=== PATIENT | female | born 1955 | race Caucasian/White ===

== ENCOUNTER 2023-07-30 16:47 | Emergency (ER) | payer SELFPAY ==
[~2023-07-30] VITALS: Ht 157.5 cm; Wt 59.0 kg
[2023-07-30 17:23] LABS: APPEARANCE,URINE CLEAR (CLEAR); BILIRUBIN,URINE NEGATIVE (NEGATIVE); COLOR,URINE LIGHT-YELLOW (YELLOW); GLUCOSE, URINE (UA) NEGATIVE (NEGATIVE); KETONES,URINE NEGATIVE (NEGATIVE); LEUKOCYTE ESTERASE ,URINE NEGATIVE Leu/uL (NEGATIVE); NITRATE,URINE NEGATIVE (NEGATIVE); OCCULT BLOOD,URINE NEGATIVE (NEGATIVE); PROTEIN,URINE NEGATIVE (NEGATIVE); UROBILINOGEN,URINE 0.2 mg/dL (0.2-1.0)
[2023-07-30 17:26] LABS: BASOPHILS # (AUTO) 0.05 K/uL (0.00-0.20); BASOPHILS % (AUTO) 0.5 % (0.0-5.0); EOSINOPHILS # (AUTO) 0.22 K/uL (0.00-0.70); EOSINOPHILS % (AUTO) 2.3 % (0.0-8.0); HEMATOCRIT 42.9 % (36-48); IMMATURE GRANULOCYTE ABSOLUTE 0.03 K/uL (0-1); LYMPHOCYTES # (AUTO) 3.4 K/uL (1.0-4.8); LYMPHOCYTES % (AUTO) 36.2 % (21.0-51.0); MEAN CORPUSCULAR HEMOGLOBIN 27.5 pg (27.0-33.0); MEAN CORPUSCULAR HGB CONC 33.1 g/dL (32.0-36.0); MONOCYTES # (AUTO) 0.6 K/uL (0.1-1.0); MONOCYTES % (AUTO) 5.9 % (3.0-13.0); NEUTROPHILS # (AUTO) 5.2 K/uL (1.8-7.7); NEUTROPHILS % (AUTO) 54.8 % (40.0-77.0); PLATELET COUNT (AUTO) 271 K/uL (130-400); RED BLOOD CELL COUNT(AUTO) 5.17 MIL/uL (4.00-5.50); WHITE BLOOD COUNT (AUTO) 9.4 K/uL (4.8-10.8)
[2023-07-30 17:29] LABS: ADD UA MICROSCOPIC YES
[2023-07-30 17:30] LABS: AMPHET/METH SCREEN,URINE NEGATIVE (NEGATIVE); BARBITURATE SCREEN, URINE NEGATIVE (NEGATIVE); BENZODIAZEPINES SCREEN,URINE NEGATIVE (NEGATIVE); CANNABINOID SCREEN,URINE NEGATIVE (NEGATIVE); COCAINE SCREEN,URINE NEGATIVE (NEGATIVE); OPIATE SCREEN,URINE NEGATIVE (NEGATIVE); PHENCYCLIDINE SCREEN,URINE NEGATIVE (NEGATIVE)
[2023-07-30 17:31] LABS: BACTERIA,URINE RARE /HPF (None Seen); SQUAMOUS EPITHELIAL CELL,UR RARE /HPF (0-2)
[2023-07-30 17:37] LABS: CARBON DIOXIDE 23 mmol/L (21-32); CHLORIDE 103 mmol/L (101-111); CREATININE 0.7 mg/dL (0.5-1.5); GLOMERULAR FILTR. RATE CALC 94 mL/min (>90); GLUCOSE,RANDOM 79 mg/dL (70-105); POTASSIUM 3.9 mmol/L (3.5-5.1); SODIUM SERUM 137 mmol/L (136-145); UREA NITROGEN, BLOOD 8 mg/dL (7-18)
[2023-07-30 17:41] LABS: ALANINE AMINOTRANSFERASE 16 U/L (12-78); ALBUMIN 3.4 g/dL (3.5-5.0); ASPARTATE AMINOTRANSFERASE 18 U/L (10-37); BILIRUBIN,TOTAL 0.3 mg/dL (0.2-1.0); SALICYLATE 6.4 mg/dL (2.8-20.0); TOTAL PROTEIN, SERUM 7.6 g/dL (6.0-8.3)
[2023-07-30 17:42] LABS: ACETAMINOPHEN < 1 mcg/mL (10-30); ALCOHOL, BLOOD < 3 mg/dL (0-10)
[2023-07-30 20:07] VITALS: BP 123/78; PULSE 84; RESP 18; O2SAT 98
== END 2023-07-30 20:10 | disposition home or self-care (01) ==
LOC: EDH 16:47
DX: R45.851 Suicidal ideations (principal); F32.A Depression, unspecified; F20.9 Schizophrenia, unspecified; Z90.49 Acquired absence of other specified parts of digestive tract; Z98.890 Other specified postprocedural states
CPT/HCPCS: 99283; 80053; 80305; 85025; 87088; 36415; 81001; G0481